=== PATIENT | female | born 2000 | race Caucasian/White ===

== ENCOUNTER 2019-06-05 19:17 | Inpatient (IN) | payer SELFPAY ==
[~2019-06-05] VITALS: Ht 162.6 cm; Wt 54.9 kg
[2019-06-05] MEDS ORDERED: ACET325T53 PO (19:30)
[2019-06-05] MEDS ORDERED: OXYM30MI INH (19:30)
[2019-06-05] MEDS ORDERED: GUAI600T45 PO (19:30)
[2019-06-05] MEDS ORDERED: AMOX500T2 PO (19:30)
[2019-06-05 19:31] VITALS: BP_SYST 142
[2019-06-05 21:30] LABS: BASOPHILS % (AUTO) 0.3 % (0.0-2.0); EOSINOPHILS # (AUTO) 0.2 K/uL (0.0-0.4); EOSINOPHILS % (AUTO) 2.3 % (0.0-4.0); HEMATOCRIT 43.5 % (36-48); HEMOGLOBIN 14.8 g/dL (12.0-16.0); LYMPHOCYTES # (AUTO) 1.3 K/uL (1.0-5.5); LYMPHOCYTES % (AUTO) 14.1 % (20.5-51.5); MEAN CORPUSCULAR HEMOGLOBIN 28 pg (27-31); MEAN CORPUSCULAR HGB CONC 34 % (32-36); MEAN CORPUSCULAR VOLUME 83 fL (79.0-98.0); MONOCYTES # (AUTO) 0.6 K/uL (0.0-1.0); MONOCYTES % (AUTO) 6.8 % (1.7-9.3); NEUTROPHILS % (AUTO) 76.5 % (40.0-70.0); PLATELET COUNT (AUTO) 331 K/uL (130-430); RED BLOOD CELL COUNT(AUTO) 5.25 MIL/uL (4.2-6.2); RED CELL DISTRIBUTION WIDTH 12.7 % (9.0-15.0); WHITE BLOOD COUNT (AUTO) 9.2 K/uL (4.5-11.0)
[2019-06-05 21:47] LABS: CREATININE 0.8 mg/dL (0.55-1.30)
[2019-06-05 21:52] LABS: ALBUMIN 3.6 g/dL (3.4-4.8); TOTAL BILIRUBIN 0.5 mg/dL (0.0-1.0)
[2019-06-05 21:57] LABS: POTASSIUM 2.6 mmol/L (3.5-5.1)
[2019-06-05] MEDS ORDERED: KCL 40mEq in D5/0.45NS 1000 mL 1,000 ML IV ONE (22:00)
[2019-06-05] MEDS ORDERED: POTASSIUM CHLORIDE 20 MEQ TAB.PRT.SR PO ONE (22:00)
[2019-06-05 22:07] LABS: C-REACTIVE PROTEIN QUANT 16.2 mg/dL (0-0.5)
[2019-06-05] MEDS ORDERED: ACETAMINOPHEN 500 MG TABLET PO ONE (23:00)
[2019-06-05] MEDS ORDERED: NACL 0.9% 1,000 ML IV SCH (23:00)
[2019-06-05 23:31] LABS: BILIRUBIN,URINE NEGATIVE (NEGATIVE); BLOOD, URINE NEGATIVE (NEGATIVE); CLARITY/URINE CLEAR (CLEAR); COLOR,URINE YELLOW (YELLOW); GLUCOSE,URINE NEGATIVE (NEGATIVE); KETONES,URINE 3+ (NEGATIVE); LEUKOCYTE ESTERASE ,URINE NEGATIVE (NEGATIVE); NITRITE, URINE NEGATIVE (NEGATIVE); PROTEIN URINE 1+ (NEGATIVE)
[2019-06-05 23:38] LABS: BACTERIA,URINE FEW /HPF (None Seen); WBC,URINE 0-3 /HPF (0-3)
[2019-06-06 01:05] VITALS: BP_SYST 111
[2019-06-06] MEDS ORDERED: DOCUSATE SODIUM 100 MG CAPSULE PO PRN (07:00)
[2019-06-06] MEDS ORDERED: ONDANSETRON HCL 4 MG/2 ML VIAL IVP PRN (07:00)
[2019-06-06] MEDS ORDERED: POTASSIUM CHLORIDE 20 MEQ TAB.PRT.SR PO PRN (07:00)
[2019-06-06] MEDS ORDERED: ZOLPIDEM TARTRATE 5 MG TABLET PO PRN (07:00)
[2019-06-06] MEDS ORDERED: ACETAMINOPHEN 325 MG TABLET PO PRN (07:00)
[2019-06-06] MEDS ORDERED: MORPHINE 2 MG/ML INJ. SYRINGE IVP PRN ×2 (07:00)
[2019-06-06] MEDS ORDERED: LORazepam 2 MG/ML VIAL IVP PRN (07:00)
[2019-06-06] MEDS ORDERED: MAGNESIUM SULFATE 50 ML IV PRN (07:00)
[2019-06-06] MEDS ORDERED: MUPIROCIN 2% TOPICAL OINTMENT 22 GM NS PRN (07:00)
[2019-06-06 07:24] LABS: BASOPHILS % (AUTO) 0.5 % (0.0-2.0); EOSINOPHILS # (AUTO) 0.2 K/uL (0.0-0.4); EOSINOPHILS % (AUTO) 2.8 % (0.0-4.0); HEMATOCRIT 38.3 % (36-48); HEMOGLOBIN 12.8 g/dL (12.0-16.0); LYMPHOCYTES # (AUTO) 1.4 K/uL (1.0-5.5); LYMPHOCYTES % (AUTO) 16.7 % (20.5-51.5); MEAN CORPUSCULAR HEMOGLOBIN 28 pg (27-31); MEAN CORPUSCULAR HGB CONC 33 % (32-36); MEAN CORPUSCULAR VOLUME 84 fL (79.0-98.0); MONOCYTES # (AUTO) 0.7 K/uL (0.0-1.0); MONOCYTES % (AUTO) 8.4 % (1.7-9.3); NEUTROPHILS % (AUTO) 71.6 % (40.0-70.0); PLATELET COUNT (AUTO) 264 K/uL (130-430); RED BLOOD CELL COUNT(AUTO) 4.55 MIL/uL (4.2-6.2); RED CELL DISTRIBUTION WIDTH 12.2 % (9.0-15.0); WHITE BLOOD COUNT (AUTO) 8.3 K/uL (4.5-11.0)
[2019-06-06 07:58] LABS: ALBUMIN 2.7 g/dL (3.4-4.8); CREATININE 0.7 mg/dL (0.55-1.30); POTASSIUM 3.5 mmol/L (3.5-5.1); TOTAL BILIRUBIN 0.4 mg/dL (0.0-1.0)
[2019-06-06 08:00] VITALS: BP_SYST 97
[2019-06-06 08:10] LABS: ERYTHROCYTE SEDIMENTATION RATE 74 MM/HR (0-20)
[2019-06-06] MEDS: NACL 0.9% 1,000 ML IV SCH ×3 (08:21→21:24)
[2019-06-06] MEDS ORDERED: LEVOFLOXACIN 500 MG/D5W 100 ML IV SCH (09:00)
[2019-06-06 12:00] VITALS: BP_SYST 109
[2019-06-06] MEDS ORDERED: HYDROXYCHLOROQUINE SULFATE 200 MG TABLET PO ONE (16:45)
[2019-06-06] MEDS ORDERED: AZITHROMYCIN 500 MG in NS 250 ML IV ONE (16:45)
[2019-06-06] MEDS ORDERED: HYDROXYCHLOROQUINE SULFATE 200 MG TABLET PO SCH (16:45)
[2019-06-06 18:20] VITALS: BP_SYST 109
[2019-06-06 19:45] VITALS: BP_SYST 109
[2019-06-06] MEDS ORDERED: ALBUTEROL MDI INHALATION 8 GM INH INH PRN (21:15)
[2019-06-07] VITALS: BP_SYST 112
[2019-06-07] MEDS: NACL 0.9% 1,000 ML IV SCH ×2 (04:45→17:13)
[2019-06-07 07:09] LABS: CALCIUM 8.2 mg/dL (8.4-11.0); CREATININE 0.66 mg/dL (0.55-1.30); POTASSIUM 3.4 mmol/L (3.5-5.1)
[2019-06-07 07:15] LABS: BASOPHILS % (AUTO) 0.5 % (0.0-2.0); EOSINOPHILS # (AUTO) 0.1 K/uL (0.0-0.4); EOSINOPHILS % (AUTO) 0.8 % (0.0-4.0); HEMATOCRIT 33.9 % (36-48); HEMOGLOBIN 11.7 g/dL (12.0-16.0); LYMPHOCYTES # (AUTO) 1.3 K/uL (1.0-5.5); LYMPHOCYTES % (AUTO) 19.4 % (20.5-51.5); MEAN CORPUSCULAR HEMOGLOBIN 30 pg (27-31); MEAN CORPUSCULAR HGB CONC 34 % (32-36); MEAN CORPUSCULAR VOLUME 88 fL (79.0-98.0); MONOCYTES # (AUTO) 0.7 K/uL (0.0-1.0); MONOCYTES % (AUTO) 10.5 % (1.7-9.3); NEUTROPHILS # (AUTO) 4.5 K/uL (1.8-7.7); NEUTROPHILS % (AUTO) 68.8 % (40.0-70.0); PLATELET COUNT (AUTO) 281 K/uL (130-430); RED BLOOD CELL COUNT(AUTO) 3.86 MIL/uL (4.2-6.2); RED CELL DISTRIBUTION WIDTH 12.7 % (9.0-15.0); WHITE BLOOD COUNT (AUTO) 6.6 K/uL (4.5-11.0)
[2019-06-07 08:00] VITALS: BP_SYST 111
[2019-06-07] MEDS ORDERED: HYDROXYCHLOROQUINE SULFATE 200 MG TABLET PO ONE (09:00)
[2019-06-07 12:00] VITALS: BP_SYST 115
[2019-06-07 16:00] VITALS: BP_SYST 110
[2019-06-07] MEDS: AZITHROMYCIN 250 MG in NS 250 ML IV SCH (17:13)
[2019-06-07 20:00] VITALS: BP_SYST 111; BP_SYST 113
[2019-06-07] MEDS: HYDROXYCHLOROQUINE SULFATE 200 MG TABLET PO SCH (20:42)
[2019-06-08] VITALS: BP_SYST 108
[2019-06-08] MEDS: NACL 0.9% 1,000 ML IV SCH (03:10)
[2019-06-08 06:53] LABS: BASOPHILS % (AUTO) 0.6 % (0.0-2.0); EOSINOPHILS # (AUTO) 0.1 K/uL (0.0-0.4); EOSINOPHILS % (AUTO) 1.9 % (0.0-4.0); HEMATOCRIT 34.1 % (36-48); HEMOGLOBIN 11.9 g/dL (12.0-16.0); LYMPHOCYTES # (AUTO) 1.1 K/uL (1.0-5.5); LYMPHOCYTES % (AUTO) 30.2 % (20.5-51.5); MEAN CORPUSCULAR HEMOGLOBIN 32 pg (27-31); MEAN CORPUSCULAR HGB CONC 35 % (32-36); MEAN CORPUSCULAR VOLUME 92 fL (79.0-98.0); MONOCYTES # (AUTO) 0.5 K/uL (0.0-1.0); MONOCYTES % (AUTO) 14.7 % (1.7-9.3); NEUTROPHILS # (AUTO) 1.9 K/uL (1.8-7.7); NEUTROPHILS % (AUTO) 52.6 % (40.0-70.0); PLATELET COUNT (AUTO) 276 K/uL (130-430); RED CELL DISTRIBUTION WIDTH 12.5 % (9.0-15.0); WHITE BLOOD COUNT (AUTO) 3.7 K/uL (4.5-11.0)
[2019-06-08 07:18] LABS: CALCIUM 8.4 mg/dL (8.4-11.0); CREATININE 0.76 mg/dL (0.55-1.30); POTASSIUM 4.2 mmol/L (3.5-5.1)
[2019-06-08 08:00] VITALS: BP_SYST 106
[2019-06-08] MEDS: HYDROXYCHLOROQUINE SULFATE 200 MG TABLET PO SCH ×2 (09:04→20:29)
[2019-06-08 11:15] VITALS: BP_SYST 115
[2019-06-08] MEDS ORDERED: FUROSEMIDE 20 MG/2 ML VIAL IVP ONE (13:15)
[2019-06-08 13:23] VITALS: BP_SYST 99
[2019-06-08 15:41] VITALS: BP_SYST 97
[2019-06-08] MEDS: AZITHROMYCIN 250 MG in NS 250 ML IV SCH (15:41)
[2019-06-08 20:00] VITALS: BP_SYST 93
[2019-06-09] VITALS: BP_SYST 100
[2019-06-09 07:36] LABS: BASOPHILS % (AUTO) 0.8 % (0.0-2.0); EOSINOPHILS # (AUTO) 0.3 K/uL (0.0-0.4); HEMATOCRIT 38.7 % (36-48); LYMPHOCYTES # (AUTO) 1.4 K/uL (1.0-5.5); LYMPHOCYTES % (AUTO) 30.3 % (20.5-51.5); MEAN CORPUSCULAR HEMOGLOBIN 28 pg (27-31); MEAN CORPUSCULAR HGB CONC 34 % (32-36); MEAN CORPUSCULAR VOLUME 83 fL (79.0-98.0); MONOCYTES # (AUTO) 0.5 K/uL (0.0-1.0); MONOCYTES % (AUTO) 11.4 % (1.7-9.3); NEUTROPHILS # (AUTO) 2.3 K/uL (1.8-7.7); NEUTROPHILS % (AUTO) 50.5 % (40.0-70.0); PLATELET COUNT (AUTO) 331 K/uL (130-430); RED BLOOD CELL COUNT(AUTO) 4.65 MIL/uL (4.2-6.2); RED CELL DISTRIBUTION WIDTH 12.9 % (9.0-15.0); WHITE BLOOD COUNT (AUTO) 4.5 K/uL (4.5-11.0)
[2019-06-09 07:39] LABS: CALCIUM 8.9 mg/dL (8.4-11.0); CREATININE 0.79 mg/dL (0.55-1.30); POTASSIUM 3.8 mmol/L (3.5-5.1)
[2019-06-09 08:00] VITALS: BP_SYST 99
[2019-06-09] MEDS: HYDROXYCHLOROQUINE SULFATE 200 MG TABLET PO SCH ×2 (08:46→20:06)
[2019-06-09] MEDS ORDERED: IOHEXOL 350 mgI/mL, 150 ML INFUS..BTL IV ONE (12:28)
[2019-06-09 14:08] VITALS: BP_SYST 99
[2019-06-09 16:00] VITALS: BP_SYST 99
[2019-06-09] MEDS: AZITHROMYCIN 250 MG in NS 250 ML IV SCH (16:00)
[2019-06-09 19:40] VITALS: BP_SYST 101
[2019-06-09 23:59] VITALS: BP_SYST 98
[2019-06-10 07:18] LABS: CALCIUM 8.9 mg/dL (8.4-11.0); CREATININE 0.72 mg/dL (0.55-1.30); POTASSIUM 3.9 mmol/L (3.5-5.1)
[2019-06-10 07:40] LABS: EOSINOPHILS % (AUTO) 0.5 % (0.0-4.0); HEMATOCRIT 29.8 % (36-48); HEMOGLOBIN 12.6 g/dL (12.0-16.0); LYMPHOCYTES % (AUTO) 38.7 % (20.5-51.5); MEAN CORPUSCULAR HEMOGLOBIN 41 pg (27-31); MEAN CORPUSCULAR HGB CONC 42 % (32-36); MEAN CORPUSCULAR VOLUME 98 fL (79.0-98.0); MONOCYTES # (AUTO) 0.4 K/uL (0.0-1.0); MONOCYTES % (AUTO) 15.3 % (1.7-9.3); NEUTROPHILS # (AUTO) 1.2 K/uL (1.8-7.7); NEUTROPHILS % (AUTO) 44.5 % (40.0-70.0); PLATELET COUNT (AUTO) 310 K/uL (130-430); RED BLOOD CELL COUNT(AUTO) 3.06 MIL/uL (4.2-6.2); RED CELL DISTRIBUTION WIDTH 12.9 % (9.0-15.0)
[2019-06-10 07:55] LABS: WHITE BLOOD COUNT (AUTO) 2.6 K/uL (4.5-11.0)
[2019-06-10] MEDS: HYDROXYCHLOROQUINE SULFATE 200 MG TABLET PO SCH ×2 (08:25→20:48)
[2019-06-10 08:38] VITALS: BP_SYST 101
[2019-06-10 12:00] VITALS: BP_SYST 98
[2019-06-10] MEDS ORDERED: ASCORBIC ACID 500 MG TABLET PO ONE (12:00)
[2019-06-10 16:00] VITALS: BP_SYST 97
[2019-06-10] MEDS: AZITHROMYCIN 250 MG in NS 250 ML IV SCH (16:41)
[2019-06-10 20:00] VITALS: BP_SYST 100
[2019-06-11 05:44] VITALS: BP_SYST 106
[2019-06-11 06:57] LABS: CALCIUM 9.4 mg/dL (8.4-11.0); CREATININE 0.78 mg/dL (0.55-1.30); POTASSIUM 4.4 mmol/L (3.5-5.1)
[2019-06-11 07:20] LABS: BASOPHILS # (AUTO) 0.1 K/uL (0.0-0.2); BASOPHILS % (AUTO) 1.1 % (0.0-2.0); EOSINOPHILS # (AUTO) 0.3 K/uL (0.0-0.4); EOSINOPHILS % (AUTO) 6.4 % (0.0-4.0); HEMOGLOBIN 13.3 g/dL (12.0-16.0); LYMPHOCYTES # (AUTO) 1.9 K/uL (1.0-5.5); LYMPHOCYTES % (AUTO) 36.6 % (20.5-51.5); MEAN CORPUSCULAR HEMOGLOBIN 28 pg (27-31); MEAN CORPUSCULAR HGB CONC 33 % (32-36); MEAN CORPUSCULAR VOLUME 85 fL (79.0-98.0); MONOCYTES # (AUTO) 0.6 K/uL (0.0-1.0); MONOCYTES % (AUTO) 12.1 % (1.7-9.3); NEUTROPHILS # (AUTO) 2.3 K/uL (1.8-7.7); NEUTROPHILS % (AUTO) 43.8 % (40.0-70.0); PLATELET COUNT (AUTO) 358 K/uL (130-430); RED BLOOD CELL COUNT(AUTO) 4.73 MIL/uL (4.2-6.2); RED CELL DISTRIBUTION WIDTH 12.8 % (9.0-15.0); WHITE BLOOD COUNT (AUTO) 5.2 K/uL (4.5-11.0)
[2019-06-11 07:45] VITALS: BP_SYST 113
[2019-06-11] MEDS: ASCORBIC ACID 500 MG TABLET PO SCH (09:14)
[2019-06-11] MEDS: HYDROXYCHLOROQUINE SULFATE 200 MG TABLET PO SCH (09:14)
[2019-06-11 12:52] VITALS: BP_SYST 102
[2019-06-11] MEDS: AZITHROMYCIN 250 MG in NS 250 ML IV SCH (15:37)
[2019-06-11 16:00] VITALS: BP_SYST 93
[2019-06-11 20:15] VITALS: BP_SYST 98
[2019-06-11 23:55] VITALS: BP_SYST 100
[2019-06-12 07:43] VITALS: BP_SYST 98
[2019-06-12] MEDS: ASCORBIC ACID 500 MG TABLET PO SCH (09:35)
[2019-06-12 12:16] VITALS: BP_SYST 94
[2019-06-12 15:34] VITALS: BP_SYST 95
[2019-06-12 16:38] VITALS: BP_SYST 95
== END 2019-06-12 16:50 | disposition home or self-care (01) | DRG 865 ==
LOC: SED 19:17 → EEVIPCON 22:47 → STU 22:47 → SED 23:43 → STU 06-06 00:52
PROVIDERS: ADMIT General Practice; ATTEND General Practice
DX: B34.9 Viral infection, unspecified (principal); J96.01 Acute respiratory failure with hypoxia; E87.6 Hypokalemia; J20.9 Acute bronchitis, unspecified; Z20.828 Contact with and (suspected) exposure to other viral communicable diseases; R94.31 Abnormal electrocardiogram [ECG] [EKG]; Z79.899 Other long term (current) drug therapy
CPT/HCPCS: 36415; 36600; 71045; 71275; 80048; 80053; 81000-TC; 82550-TC; 82728; 82803-TC; 83036; 83605; 83615-TC; 83735-TC; 83880; 84484; 85025; 85379; 85651-TC; 86140; 86710; 87040-TC; 87086; 93005; 93306; 96365; 99291; G0378; J0456; J1940; J1956; J7030; J7050; Q9967; U0002